=== PATIENT | male | born 1955 | race Hispanic/Latino ===

== ENCOUNTER 2025-08-28 14:25 | Inpatient (IN) | payer OTHER ==
[~2025-08-28 14:25] MED LIST: Iopamidol-370 76% 500 ML MDV (1 ML CHARGE) ONE
[2025-08-28] MEDS ORDERED: Ondansetron PF 4 MG/2 ML Vial ONE (14:46)
[2025-08-28 14:49] LABS: #Basophils 0.03 10x3/uL (0.0-0.2); #Eosinophils Less than 0.03 10x3/uL (0.0-0.7); #Monocytes 0.45 10x3/uL (0.11-0.59); #Neutrophils 4.36 10x3/uL (1.40-6.50); %Basophils 0.5 % (0.0-1.0); %Eosinophils 0.3 % (0.0-10.0); %Lymphocytes 22.9 % (21.0-51.0); %Monocytes 7.1 % (0.0-10.0); %Neutrophils 69.0 % (42.0-75.0); Hematocrit 33.0 % (42.0-52.0); Hemoglobin 10.6 g/dL (14.0-18.0); Mean Corpuscular Hemoglobin 25.9 pg (27.0-31.0); Mean Corpuscular Volume 80.5 fL (78.0-98.0); Platelet Count 241 10x3/uL (130-400); Red Blood Cell (RBC) Count 4.10 mill/uL (4.70-6.10); White Blood Cell (WBC) Count 6.32 10x3/uL (4.8-10.8)
[2025-08-28 14:58] LABS: ALT (SGPT) 11 U/L (Less than 45); AST (SGOT) 14 U/L (11-34); Albumin 3.3 g/dL (3.1-4.5); Alkaline Phosphatase 85 U/L (40-110); Anion Gap 16 mmol/L (10-20); BUN (Urea Nitrogen) 17 mg/dL (8.4-25.7); Bilirubin, Total 0.3 mg/dL (0.3-1.2); Calc. Creatinine Clearance 0 mL/min (70-130); Calcium 8.2 mg/dL (7.8-10.44); Carbon Dioxide 18 mmol/L (23-31); Chloride 110 mmol/L (98-107); Globulin 2.8 g/dL (2.4-3.5); Glucose 107 mg/dL (80-115); Potassium 3.4 mmol/L (3.5-5.1); Sodium 141 mmol/L (136-145)
[2025-08-28 15:12] LABS: Lipase 13 U/L (8-78); Magnesium 1.6 mg/dL (1.6-2.6)
[2025-08-28] MEDS ORDERED: Senokot S 8.6-50 MG TAB PO PRN (17:36)
[2025-08-28] MEDS ORDERED: Nitroglycerin 0.4 MG TAB (25 Tab Bottle) SL PRN (17:36)
[2025-08-28] MEDS ORDERED: Acetaminophen 325 MG TAB PO PRN (17:36)
[2025-08-28] MEDS ORDERED: Dextrose 50% Abboject 50 ML SYRINGE SLOW IVP PRN (17:36)
[2025-08-28] MEDS ORDERED: Melatonin 3 MG TAB PO PRN (17:36)
[2025-08-28] MEDS ORDERED: Glucagon 1 MG/ML KIT IM PRN (17:36)
[2025-08-28 18:43] VITALS: BMI 24.2
[2025-08-28] MEDS: Famotidine 20 MG TAB PO SCH (20:04)
[2025-08-29 07:04] LABS: #Basophils Less than 0.03 10x3/uL (0.0-0.2); #Eosinophils 0.07 10x3/uL (0.0-0.7); #Monocytes 0.46 10x3/uL (0.11-0.59); #Neutrophils 3.13 10x3/uL (1.40-6.50); %Basophils 0.4 % (0.0-1.0); %Eosinophils 1.2 % (0.0-10.0); %Lymphocytes 35.3 % (21.0-51.0); %Monocytes 8.1 % (0.0-10.0); %Neutrophils 54.8 % (42.0-75.0); Hematocrit 32.7 % (42.0-52.0); Hemoglobin 10.2 g/dL (14.0-18.0); Mean Corpuscular Hemoglobin 25.6 pg (27.0-31.0); Mean Corpuscular Volume 82.2 fL (78.0-98.0); Platelet Count 223 10x3/uL (130-400); Red Blood Cell (RBC) Count 3.98 mill/uL (4.70-6.10); White Blood Cell (WBC) Count 5.70 10x3/uL (4.8-10.8)
[2025-08-29 07:24] LABS: Anion Gap 10 mmol/L (10-20); BUN (Urea Nitrogen) 13 mg/dL (8.4-25.7); Calc. Creatinine Clearance 87 mL/min (70-130); Carbon Dioxide 24 mmol/L (23-31); Chloride 110 mmol/L (98-107); Potassium 3.7 mmol/L (3.5-5.1); Sodium 140 mmol/L (136-145)
[2025-08-29 07:25] LABS: Calcium 8.3 mg/dL (7.8-10.44); Glucose 101 mg/dL (80-115)
[2025-08-29] MEDS: Carvedilol 6.25 MG TAB PO SCH (09:10)
[2025-08-29] MEDS: Enoxaparin 40 MG (0.4 mL) SYRINGE SC SCH (09:11)
[2025-08-29] MEDS: Aspirin Chewable 81 MG TAB PO SCH (09:11)
[2025-08-29] MEDS: Lisinopril 2.5 MG TAB PO SCH (09:28)
[2025-08-30 04:18] LABS: #Basophils 0.03 10x3/uL (0.0-0.2); #Eosinophils 0.08 10x3/uL (0.0-0.7); #Monocytes 0.50 10x3/uL (0.11-0.59); #Neutrophils 3.88 10x3/uL (1.40-6.50); %Basophils 0.4 % (0.0-1.0); %Eosinophils 1.2 % (0.0-10.0); %Lymphocytes 33.3 % (21.0-51.0); %Monocytes 7.4 % (0.0-10.0); %Neutrophils 57.6 % (42.0-75.0); Hematocrit 34.1 % (42.0-52.0); Hemoglobin 10.8 g/dL (14.0-18.0); Mean Corpuscular Hemoglobin 25.9 pg (27.0-31.0); Mean Corpuscular Volume 81.8 fL (78.0-98.0); Platelet Count 256 10x3/uL (130-400); Red Blood Cell (RBC) Count 4.17 mill/uL (4.70-6.10); White Blood Cell (WBC) Count 6.75 10x3/uL (4.8-10.8)
[2025-08-30 04:31] LABS: Anion Gap 13 mmol/L (10-20); BUN (Urea Nitrogen) 14 mg/dL (8.4-25.7); Calc. Creatinine Clearance 96 mL/min (70-130); Calcium 8.4 mg/dL (7.8-10.44); Carbon Dioxide 23 mmol/L (23-31); Chloride 109 mmol/L (98-107); Glucose 99 mg/dL (80-115); Potassium 3.6 mmol/L (3.5-5.1); Sodium 141 mmol/L (136-145)
[2025-08-30] MEDS: Isosorbide Mononitrate 30 MG ER.TAB.S PO SCH (10:45)
[2025-08-30 12:09] VITALS: TEMP 98.9
[2025-08-30 17:41] VITALS: BP 91/56
[2025-08-31] MEDS ORDERED: PNEUMOC 20-VAL CONJ-DIP CRM/PF 0.5 ML SYRINGE IM ONE (09:00)
[2025-08-31] MEDS ORDERED: Isosorbide Mononitrate 30 MG ER.TAB.S PO SCH (09:00)
== END 2025-08-30 19:14 | DRG 313 ==
LOC: ERS 14:25 → OBS 16:49 → EEVIPCON 16:49 → OBSVTOIN 08-29 09:30
PROVIDERS: ADMIT Family Medicine; ATTEND Internal Medicine
DX: R07.9 Chest pain, unspecified (principal); F33.9 Major depressive disorder, recurrent, unspecified; I25.10 Atherosclerotic heart disease of native coronary artery without angina pectoris; Z95.1 Presence of aortocoronary bypass graft; E11.9 Type 2 diabetes mellitus without complications; I50.9 Heart failure, unspecified; I25.2 Old myocardial infarction; Z66 Do not resuscitate; M19.90 Unspecified osteoarthritis, unspecified site; Z87.891 Personal history of nicotine dependence; I73.9 Peripheral vascular disease, unspecified; D64.9 Anemia, unspecified; E78.5 Hyperlipidemia, unspecified; K21.9 Gastro-esophageal reflux disease without esophagitis; Z85.46 Personal history of malignant neoplasm of prostate; Z88.0 Allergy status to penicillin
CPT/HCPCS: 36415; 36416; 71045; 71275; 74174; 78452; 80048; 80053; 83690; 83735; 83880; 84484; 85025; 93005; 93017; 94760; 96372; 96374; 96375; 96376; A9502; G0378; J1650; J2272; J2405; J2785; Q9967